=== PATIENT | male | born 1980 | race Caucasian/White ===

== ENCOUNTER 2019-07-15 16:04 | Observation (INO) ==
[2019-07-15] MEDS ORDERED: 0.9 % Sodium Chloride 1,000 ML IVC ONE (16:06)
[2019-07-15] MEDS ORDERED: Pantoprazole 40 MG VIAL IVP ONE (16:06)
--- NOTE | 2019-07-15 16:10 | Emergency Department Note ---
Disposition Clinical Impression: Acute renal insufficiency, Hyperkalemia, Diverticulitis Disposition: Admitted As Inpatient Condition: Fair Referrals: Semaj Perez DO [Primary Care Provider] - Forms: ED Satisfaction Letter Time of Disposition: 17:07 Abdominal Pain HPI - General Chief Complaint: ED General Medical Stated Complaint: GROIN PAIN, DIZZINESS, FEVER Time Seen by Provider: 07/15/19 16:06 Source: patient, EMS Mode of arrival: EMS Limitations: no limitations Nursing Notes Reviewed: Yes Vital Signs Reviewed: Yes - History of Present Illness HPI Narrative: Patient has been brought in by EMS with report of abdominal pain. Says in the lower abdomen to his back. He is noted to have a temperature 101.7 with a heart rate of 100 and blood pressure 133/64. An IV was established and he has been transported in for evaluation. He seen immediately on arrival. He states for 2-3 days he has been having some pains in his left lower abdomen towards his back. Yesterday he felt dizzy when he was standing and walking but not today. He is still having the pain mainly in the left lower quadrant to left lower back. He notes a history of chronic right low back to his right leg. He does not feel this is anything related to his back pain. Did have 2 bowel movements today without blood or mucus. He has had some nausea and vomiting 2 days ago but none at this time and no nausea now. He believes fever and chills just started 3-4 hours ago. He denies cough or congestion that is new. He does admit to a chronic cough. He feels up there might been a knot in the left groin. He states "not like her hernia or anything". He believes that has been present since yesterday. He notes he has had a history of bleeding ulcers for which she has seen GI at [facility]. He states he has been off medication for his stomach. He is not having increased epigastric burning, dyspepsia or other gastritis complaints. Pt Subjective Complaint: abdominal pain Onset (ago): day(s) (2-3) Consistency: intermittent, Worsening Location: LLQ Pain Severity: moderate Quality: aching, dull Radiation: back (Left lower) Migration to: no migration Improves with: rest Worsens with: movement Associated symptoms: Reports: fever, chills. Denies: nausea, vomiting, diarrhea, constipation, dysuria, hematemesis, hematochezia, melena, hematuria, anorexia, syncope Treatments prior to arrival: none - Related Data Home Medications Medication Instructions Recorded Confirmed Gabapentin [Neurontin] 800 mg PO TID 09/25/17 07/15/19 Lisinopril [Zestril] 20 mg PO DAILY 09/25/17 07/15/19 Metoprolol [Lopressor] 12.5 mg PO BID 11/06/18 07/15/19 Tizanidine HCl [Zanaflex] 4 mg PO TID 01/21/19 07/15/19 Omeprazole [PriLOSEC] 40 mg PO DAILY 07/15/19 07/15/19 Allergies Allergy/AdvReac Type Severity Reaction Status Date / Time ibuprofen AdvReac See Verified 01/21/19 10:40 Comments All systems ED: reviewed and negative except as stated. Abdominal Pain PMH - Past Medical History Medical history: Reports: GERD, GI bleed, hypertension Male Surgical History: Reports: other Psychiatric history: Reports: anxiety, bipolar, PTSD - Social History Smoking status: Current every day smoker Alcohol use: Reports: heavy, recent Drug use: Reports: marijuana, methamphetamine Physical Exam - General Limitations: no limitations General appearance: alert, in no apparent distress - Head Head exam: atraumatic, normocephalic, normal inspection - Eye Eye exam: Present: normal appearance, PERRL, EOMI. Absent: scleral icterus, conjunctival injection - ENT ENT exam: normal exam, normal oropharynx, mucous membranes moist - Neck Neck exam: Present: normal inspection, full ROM, trachea midline - Chest Chest inspection: Present: normal inspection, symmetric chest wall rise. Absent: tenderness - Respiratory Respiratory exam: Present: normal lung sounds bilaterally. Absent: respiratory distress, wheezes, prolonged expiratory phase - Cardiovascular Cardiovascular exam: Present: regular rate, normal rhythm, normal heart sounds - Abdominal Exam Abdominal exam: Present: soft, normal bowel sounds. Absent: distention, guar ding, rebound, rigidity, psoas sign, obturator sign, heel tap sign, Jacinto's sign, Rovsing's sign, tenderness at McBurney's Point, hernia Abdominal tenderness: Present: LLQ, suprapubic, moderate - Extremities Exam Extremities exam: Present: normal inspection, full ROM, normal capillary refill. Absent: tenderness, pedal edema, calf tenderness - Expanded Lower Extremity Exam Neurovascular/Tendon exam: Present: normal capillary refill. Absent: motor deficit, sensory deficit, tendon deficit Gait: not tested/not observed - Back Exam Back exam: Present: normal inspection, full ROM. Absent: tenderness, CVA tenderness (R), CVA tenderness (L) - Neurological Exam Neurological exam: Present: alert, oriented X3 - Psychiatric Psychiatric exam: Present: normal affect, normal mood. Absent: agitated, anxious - Skin Skin exam: Present: warm, dry, intact, normal color. Absent: diaphoresis, pallor Course Course Narrative: 1649: Patient has acute renal insufficiency by his lab in addition to a potassium of 5.8. He will continue on IV fluids and has been written for a dose of dextrose and insulin. He is in CT imaging at this time. I have added an EKG and a troponin to his existing laboratory testing. 1654: With return of CT imaging, care is been discussed with Dr. Parikh for inpatient observation of this patient. He is agreeable with continuation of IV fluids, antibiotics and recheck of his chemistries in the morning. This is discussed with the patient and an inpatient bed is being arranged at this time. Vital Signs Temperature 99.0 F 07/15/19 16:11 Pulse Rate 135 07/15/19 16:11 Respiratory Rate 18 07/15/19 16:11 Blood Pressure 135/77 07/15/19 16:11 O2 Sat by Pulse Oximetry 95 07/15/19 16:11 Temperature 99.0 F 07/15/19 16:11 Pulse Rate 135 07/15/19 16:11 Respiratory Rate 18 07/15/19 16:11 Blood Pressure 135/77 07/15/19 16:11 O2 Sat by Pulse Oximetry 95 07/15/19 16:11 Oxygen Delivery Oxygen Delivery Room Air Abdominal Pain - Differential Diagnosis Differential Diagnosis: Likely: abdominal pain non-specific, acute appendicitis, calculus of kidney, constipation, colonic obstruction, diverticulitis, d iverticulosis, small bowel obstruction - Medical Records Medical records reviewed: Yes I reviewed the patient's medical records. - Lab Data Lab results reviewed: Yes I reviewed the patient's lab results. Result diagrams: 07/15/19 16:20 07/15/19 16:20 Lab Results 07/15/19 07/15/19 07/15/19 Range/Units 16:20 16:20 16:20 WBC 8.7 (4.3-11.1) K/mcL RBC 4.37 (4.19-5.50) M/mcL Hgb 13.3 (12.9-16.9) g/dL Hct 40.9 (37.5-50.1) % MCV 93.6 (83.0-100.0) fL MCH 30.4 (28.0-33.3) pg MCHC 32.5 (31.6-35.5) g/dL RDW 13.6 (11.5-14.5) % Plt Count 169 (140-400) K/mcL MPV 10.7 (9.4-12.4) fL Immature Gran % 0.3 (0-4) % Seg Neutrophils % 82.3 % Lymphocytes % 7.7 % Monocytes % 7.3 % Eosinophils % 2.2 % Basophils % 0.2 % Neutrophils # 7.1 (1.6-8.9) K/mcL Lymphocytes # 0.7 (0.6-4.6) K/mcL Monocytes # 0.6 (0.0-1.3) K/mcL Eosinophils # 0.2 (0.0-0.6) K/mcL Basophils # 0.0 (0.0-0.2) K/mcL PT (9.4-12.1) Seconds INR APTT (26.0-36.0) Seconds Sodium 134 L (136-145) mEq/L Potassium 5.8 H (3.5-5.1) mEq/L Chloride 102 (98-107) mEq/L Carbon Dioxide 30 H (23-29) mEq/L BUN 33 H (6-20) mg/dL Creatinine 1.64 H (0.70-1.30) mg/dL Est GFR ( Amer) 56 L (> 60) Est GFR (Non-Af Amer) 47 L (> 60) BUN/Creatinine Ratio 20 (6-26) Glucose 104 (70-105) mg/dL Calculated Osmolality 286 (280-300) Lactic Acid 1.0 (0.5-2.2) mmol/L Calcium 9.1 (8.6-10.3) mg/dL Total Bilirubin 0.5 (0.3-1.0) mg/dL Direct Bilirubin 0.1 (0.0-0.2) mg/dL Indirect Bilirubin 0.4 (0.0-1.2) mg/dL AST 28 (13-39) Units/L ALT 20 (7-52) Units/L Alkaline Phosphatase 73 (34-104) Units/L Troponin I (< 0.04) ng/mL Serum Total Protein 7.5 (6.4-8.9) g/dL Albumin 4.4 (3.5-5.7) g/dL Globulin 3.1 (2.4-3.5) g/dL Albumin/Globulin Ratio 1.4 (1.1-2.2) Amylase 28 L (29-103) Units/L Lipase 18 (11-82) Units/L Urine Color (Yellow) Urine Clarity (Clear) Urine pH (5.0-8.0) pH Units Ur Specific Reading (1.010-1.025) Urine Protein (Neg-Trace) mg/dL Urine Glucose (UA) (Normal) mg/dL Urine Ketones (Negative) mg/dL Urine Blood (Negative) Urine Nitrite (Negative) Urine Bilirubin (Negative) Urine Urobilinogen (Normal) mg/dL Ur Leukocyte Esterase (Negative) Ur Culture Indicated? (NO) Urine Opiates Screen (Thqlzh=080) ng/mL Ur Buprenorphine Scrn (Cutoff=5) ng/mL Ur Oxycodone Screen (Cutoff= 100) ng/mL Ur Barbiturates Screen (Amubac=283) ng/mL Ur Phencyclidine Scrn (Cutoff=25) ng/mL Ur Amphetamines Screen (Nluuku=2009) ng/mL U Benzodiazepines Scrn (Ylkyqo=062) ng/mL Urine Cocaine Screen (Cutoff= 300) ng/mL U Marijuana (THC) Screen (Cutoff = 50) ng/mL Ur Drug Screen Interp Ethyl Alcohol (Less than 10) mg/dL 07/15/19 07/15/19 07/15/19 Range/Units 16:20 16:20 16:20 WBC (4.3-11.1) K/mcL RBC (4.19-5.50) M/mcL Hgb (12.9-16.9) g/dL Hct (37.5-50.1) % MCV (83.0-100.0) fL MCH (28.0-33.3) pg MCHC (31.6-35.5) g/dL RDW (11.5-14.5) % Plt Count (140-400) K/mcL MPV (9.4-12.4) fL Immature Gran % (0-4) % Seg Neutrophils % % Lymphocytes % % Monocytes % % Eosinophils % % Basophils % % Neutrophils # (1.6-8.9) K/mcL Lymphocytes # (0.6-4.6) K/mcL Monocytes # (0.0-1.3) K/mcL Eosinophils # (0.0-0.6) K/mcL Basophils # (0.0-0.2) K/mcL PT 11.5 (9.4-12.1) Seconds INR 1.0 APTT 32.6 (26.0-36.0) Seconds Sodium (136-145) mEq/L Potassium (3.5-5.1) mEq/L Chloride (98-107) mEq/L Carbon Dioxide (23-29) mEq/L BUN (6-20) mg/dL Creatinine (0.70-1.30) mg/dL Est GFR ( Amer) (> 60) Est GFR (Non-Af Amer) (> 60) BUN/Creatinine Ratio (6-26) Glucose (70-105) mg/dL Calculated Osmolality (280-300) Lactic Acid (0.5-2.2) mmol/L Calcium (8.6-10.3) mg/dL Total Bilirubin (0.3-1.0) mg/dL Direct Bilirubin (0.0-0.2) mg/dL Indirect Bilirubin (0.0-1.2) mg/dL AST (13-39) Units/L ALT (7-52) Units/L Alkaline Phosphatase (34-104) Units/L Troponin I < 0.03 (< 0.04) ng/mL Serum Total Protein (6.4-8.9) g/dL Albumin (3.5-5.7) g/dL Globulin (2.4-3.5) g/dL Albumin/Globulin Ratio (1.1-2.2) Amylase (29-103) Units/L Lipase (11-82) Units/L Urine Color (Yellow) Urine Clarity (Clear) Urine pH (5.0-8.0) pH Units Ur Specific Reading (1.010-1.025) Urine Protein (Neg-Trace) mg/dL Urine Glucose (UA) (Normal) mg/dL Urine Ketones (Negative) mg/dL Urine Blood (Negative) Urine Nitrite (Negative) Urine Bilirubin (Negative) Urine Urobilinogen (Normal) mg/dL Ur Leukocyte Esterase (Negative) Ur Culture Indicated? (NO) Urine Opiates Screen (Idmtiz=699) ng/mL Ur Buprenorphine Scrn (Cutoff=5) ng/mL Ur Oxycodone Screen (Cutoff= 100) ng/mL Ur Barbiturates Screen (Vxgxiv=774) ng/mL Ur Phencyclidine Scrn (Cutoff=25) ng/mL Ur Amphetamines Screen (Bkcugv=1054) ng/mL U Benzodiazepines Scrn (Ojwfth=113) ng/mL Urine Cocaine Screen (Cutoff= 300) ng/mL U Marijuana (THC) Screen (Cutoff = 50) ng/mL Ur Drug Screen Interp Ethyl Alcohol < 10 (Less than 10) mg/dL 07/15/19 07/15/19 Range/Units 16:37 16:37 WBC (4.3-11.1) K/mcL RBC (4.19-5.50) M/mcL Hgb (12.9-16.9) g/dL Hct (37.5-50.1) % MCV (83.0-100.0) fL MCH (28.0-33.3) pg MCHC (31.6-35.5) g/dL RDW (11.5-14.5) % Plt Count (140-400) K/mcL MPV (9.4-12.4) fL Immature Gran % (0-4) % Seg Neutrophils % % Lymphocytes % % Monocytes % % Eosinophils % % Basophils % % Neutrophils # (1.6-8.9) K/mcL Lymphocytes # (0.6-4.6) K/mcL Monocytes # (0.0-1.3) K/mcL Eosinophils # (0.0-0.6) K/mcL Basophils # (0.0-0.2) K/mcL PT (9.4-12.1) Seconds INR APTT (26.0-36.0) Seconds Sodium (136-145) mEq/L Potassium (3.5-5.1) mEq/L Chloride (98-107) mEq/L Carbon Dioxide (23-29) mEq/L BUN (6-20) mg/dL Creatinine (0.70-1.30) mg/dL Est GFR ( Amer) (> 60) Est GFR (Non-Af Amer) (> 60) BUN/Creatinine Ratio (6-26) Glucose (70-105) mg/dL Calculated Osmolality (280-300) Lactic Acid (0.5-2.2) mmol/L Calcium (8.6-10.3) mg/dL Total Bilirubin (0.3-1.0) mg/dL Direct Bilirubin (0.0-0.2) mg/dL Indirect Bilirubin (0.0-1.2) mg/dL AST (13-39) Units/L ALT (7-52) Units/L Alkaline Phosphatase (34-104) Units/L Troponin I (< 0.04) ng/mL Serum Total Protein (6.4-8.9) g/dL Albumin (3.5-5.7) g/dL Globulin (2.4-3.5) g/dL Albumin/Globulin Ratio (1.1-2.2) Amylase (29-103) Units/L Lipase (11-82) Units/L Urine Color Yellow (Yellow) Urine Clarity Clear (Clear) Urine pH 7.0 (5.0-8.0) pH Units Ur Specific Reading 1.015 (1.010-1.025) Urine Protein Negative (Neg-Trace) mg/dL Urine Glucose (UA) Normal (Normal) mg/dL Urine Ketones Negative (Negative) mg/dL Urine Blood Negative (Negative) Urine Nitrite Negative (Negative) Urine Bilirubin Negative (Negative) Urine Urobilinogen Normal (Normal) mg/dL Ur Leukocyte Esterase Negative (Negative) Ur Culture Indicated? NO (NO) Urine Opiates Screen Negative (Nbdhbw=833) ng/mL Ur Buprenorphine Scrn Negative (Cutoff=5) ng/mL Ur Oxycodone Screen Negative (Cutoff= 100) ng/mL Ur Barbiturates Screen Negative (Sdhlqb=384) ng/mL Ur Phencyclidine Scrn Negative (Cutoff=25) ng/mL Ur Amphetamines Screen Negative (Inyebu=1424) ng/mL U Benzodiazepines Scrn Negative (Crsyjz=286) ng/mL Urine Cocaine Screen Negative (Cutoff= 300) ng/mL U Marijuana (THC) Screen Negative (Cutoff = 50) ng/mL Ur Drug Screen Interp See Below Ethyl Alcohol (Less than 10) mg/dL - Radiology Data Radiology results reviewed: Yes I reviewed the patient's radiology results. 1655: Patient's CT demonstrates clear lungs. The liver, spleen and pancreas appear normal. Kidneys are without stone or obstruction. Bowels without obstruction but he does have diverticular disease with diverticular inflammation in the left lower quadrant. There is no evidence for abscess or perforation. Abdominal wall appears normal. This is on my interpretation. Impressions Abdomen/Pelvis CT 07/15/19 17:17 IMPRESSION: Findings compatible with mild acute uncomplicated diverticulitis of the mid to distal descending colon. D/ / Slade Corley MD / Slade Corley MD Interpreting Provider: Slade Corley MD - EKG Data EKG attestation: Yes I reviewed and interpreted this EKG. EKG shows normal: sinus rhythm, axis, intervals, QRS complexes, ST-T waves Rate: normal (93) Interpretation: no acute changes, other (mild peaking of the lateral T waves) Critical Care Time Critical Care Time: Yes Total Critical Care Time: 40 Attestation: As this patient did present with signs and symptoms of potential life- threatening illness requiring my urgent intervention, total critical care time in this patient's care has been 40 minutes, not withstanding separately reportable procedures.
[2019-07-15 16:28] LABS: Basophils % 0.2 %; Eosinophils # 0.2 K/mcL (0.0-0.6); Eosinophils % 2.2 %; Hematocrit 40.9 % (37.5-50.1); Hemoglobin 13.3 g/dL (12.9-16.9); Immature Granulocytes % 0.3 % (0-4); Lymphocytes # 0.7 K/mcL (0.6-4.6); Lymphocytes % 7.7 %; Mean Corpuscular HGB Conc 32.5 g/dL (31.6-35.5); Mean Corpuscular Hemoglobin 30.4 pg (28.0-33.3); Mean Corpuscular Volume 93.6 fL (83.0-100.0); Mean Platelet Volume 10.7 fL (9.4-12.4); Monocytes # 0.6 K/mcL (0.0-1.3); Monocytes % 7.3 %; Neutrophils # 7.1 K/mcL (1.6-8.9); Platelet Count 169 K/mcL (140-400); Red Blood Count 4.37 M/mcL (4.19-5.50); Red Cell Distribution Width 13.6 % (11.5-14.5); Segmented Neutrophils % 82.3 %; White Blood Count 8.7 K/mcL (4.3-11.1)
[2019-07-15 16:36] LABS: Prothrombin Time 11.5 Seconds (9.4-12.1)
[2019-07-15 16:39] LABS: Activated Partial Thrombo Time 32.6 Seconds (26.0-36.0)
[2019-07-15 16:44] LABS: Albumin 4.4 g/dL (3.5-5.7); Albumin/Globulin Ratio 1.4 (1.1-2.2); Bilirubin,Direct 0.1 mg/dL (0.0-0.2); Bilirubin,Indirect 0.4 mg/dL (0.0-1.2); Bilirubin,Total 0.5 mg/dL (0.3-1.0); Calcium 9.1 mg/dL (8.6-10.3); Globulin 3.1 g/dL (2.4-3.5); Potassium 5.8 mEq/L (3.5-5.1); Total Protein 7.5 g/dL (6.4-8.9)
[2019-07-15] MEDS ORDERED: Insulin Regular, Human 100 UNIT/ML SQ ONE (16:48)
[2019-07-15] MEDS ORDERED: *HR* Dextrose 50 % in Water (Vial) 50 ML VIAL IVP ONE (16:48)
[2019-07-15 16:49] LABS: Bilirubin,Urine Negative (Negative); Blood,Urine Negative (Negative); Clarity,Urine Clear (Clear); Color,Urine Yellow (Yellow); Glucose,Urine (UA) Normal (Normal); Ketones,Urine Negative (Negative); Leukocyte Esterase,Urine Negative (Negative); Nitrite,Urine Negative (Negative); Protein,Urine Negative (Neg-Trace); Specific Gravity,Urine 1.015 (1.010-1.025); Urobilinogen,Urine Normal (Normal)
[2019-07-15 16:52] LABS: Amphetamine Screen,Urine Negative ng/mL (Cutoff=1000); Barbiturate Screen,Urine Negative ng/mL (Cutoff=200); Benzodiazepines Screen,Urine Negative ng/mL (Cutoff=200); Cannabinoid Screen,Urine Negative ng/mL (Cutoff = 50); Cocaine Screen,Urine Negative ng/mL (Cutoff= 300); Opiate Screen,Urine Negative ng/mL (Cutoff=300); Phencyclidine Screen,Urine Negative ng/mL (Cutoff=25)
[2019-07-15] MEDS ORDERED: MetroNIDAZOLE 500 MG/100 ML 500 MG/100 ML BAG IVPB ONE ×2 (16:54→17:49)
[2019-07-15] MEDS ORDERED: *HR* HYDROmorphone (PF) 1 MG/ML SYRINGE IVP ONE ×2 (17:07→17:49)
[2019-07-15] MEDS ORDERED: *HR* HYDROmorphone (PF) 1 MG/ML SYRINGE IVP PRN (17:49)
[2019-07-15] MEDS ORDERED: Ondansetron 4 MG/2 ML VIAL IVP PRN (17:49)
[2019-07-15] MEDS ORDERED: Mag Hydrox/Al Hydrox/Simeth 30 ML UDC PO PRN (17:49)
[2019-07-15] MEDS ORDERED: MOM Conc 10 ML UD.LIQ PO PRN (17:49)
[2019-07-15] MEDS ORDERED: Naloxone 0.4 MG/ML INJ IVP PRN (17:49)
[2019-07-15] MEDS: traMADol 50 MG TABLET PO PRN (20:56)
[2019-07-15] MEDS: Gabapentin 400 MG CAPSULE PO SCH (20:56)
[2019-07-15] MEDS: 0.9 % Sodium Chloride 1,000 ML IVC SCH (20:57)
[2019-07-16] MEDS: MetroNIDAZOLE 500 MG/100 ML 500 MG/100 ML BAG IVPB SCH ×3 (00:27→15:53)
[2019-07-16] MEDS: 0.9 % Sodium Chloride 1,000 ML IVC SCH (03:11)
[2019-07-16] MEDS: traMADol 50 MG TABLET PO PRN ×2 (05:43→15:58)
[2019-07-16 06:53] LABS: BUN/Creatinine Ratio 18 (6-26); Blood Urea Nitrogen 17 mg/dL (6-20); Calcium 8.7 mg/dL (8.6-10.3); Carbon Dioxide 28 mEq/L (23-29); Chloride 102 mEq/L (98-107); Glucose 101 mg/dL (70-105); Osmolality,Calculated 280 (280-300); Potassium 5.2 mEq/L (3.5-5.1); Sodium 134 mEq/L (136-145); eGFR For African Americans > 60 (> 60); eGFR For Non-African Americans > 60 (> 60)
[2019-07-16] MEDS: Gabapentin 400 MG CAPSULE PO SCH ×3 (08:53→21:10)
[2019-07-16] MEDS ORDERED: Lisinopril 20 MG TABLET PO SCH (09:00)
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
[2019-07-16] MEDS ORDERED: Acetaminophen 325 MG TABLET PO PRN (11:06)
--- NOTE | 2019-07-16 11:28 | Electrocardiograph Report ---
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
[2019-07-16] MEDS: Lactobacillus 1 EACH CAP.SPRINK PO SCH (21:10)
[2019-07-17] MEDS: MetroNIDAZOLE 500 MG/100 ML 500 MG/100 ML BAG IVPB SCH ×3 (01:22→17:48)
[2019-07-17] MEDS: traMADol 50 MG TABLET PO PRN ×3 (01:26→21:00)
[2019-07-17] MEDS: *HR* Enoxaparin 40 MG/0.4 ML SYRINGE SQ SCH (05:32)
[2019-07-17 06:20] LABS: Basophils % 0.4 %; Eosinophils # 0.2 K/mcL (0.0-0.6); Eosinophils % 2.5 %; Hematocrit 38.8 % (37.5-50.1); Hemoglobin 12.4 g/dL (12.9-16.9); Immature Granulocytes % 0.1 % (0-4); Lymphocytes # 1.6 K/mcL (0.6-4.6); Lymphocytes % 18.7 %; Mean Corpuscular Hemoglobin 30.7 pg (28.0-33.3); Monocytes # 1.1 K/mcL (0.0-1.3); Monocytes % 12.4 %; Neutrophils # 5.6 K/mcL (1.6-8.9); Platelet Count 142 K/mcL (140-400); Red Blood Count 4.04 M/mcL (4.19-5.50); Red Cell Distribution Width 13.2 % (11.5-14.5); Segmented Neutrophils % 65.9 %; White Blood Count 8.4 K/mcL (4.3-11.1)
[2019-07-17 06:42] LABS: BUN/Creatinine Ratio 13 (6-26); Blood Urea Nitrogen 9 mg/dL (6-20); Calcium 8.5 mg/dL (8.6-10.3); Carbon Dioxide 27 mEq/L (23-29); Chloride 98 mEq/L (98-107); Glucose 117 mg/dL (70-105); Magnesium 1.6 mg/dL (1.6-2.6); Osmolality,Calculated 274 (280-300); Potassium 4.2 mEq/L (3.5-5.1); Sodium 132 mEq/L (136-145); eGFR For African Americans > 60 (> 60); eGFR For Non-African Americans > 60 (> 60)
[2019-07-17] MEDS: Lactobacillus 1 EACH CAP.SPRINK PO SCH ×2 (09:08→19:42)
[2019-07-17] MEDS: Gabapentin 400 MG CAPSULE PO SCH ×3 (09:08→19:42)
--- NOTE | 2019-07-17 10:09 | Internal Med Progress Note ---
Date of Encounter: 07/17/19 Time of Encounter: 10:00 - Assessment and plan (1) Diverticulitis Current Visit: Yes Status: Acute Assessment and plan: July 17. Continue IV Flagyl and Cipro with lactobacillus. He wishes to try advancing diet. (2) Chronic pain Current Visit: No Status: Chronic Assessment and plan: July 17. Continue gabapentin and Tylenol. Qualifiers: Chronic pain type: chronic pain syndrome Qualified Code(s): G89.4 - Chronic pain syndrome (3) Hypertension Current Visit: No Status: Chronic Assessment and plan: July 17. Blood pressure borderline low. Hold Lopressor. Remain off lisinopril. Qualifiers: Hypertension type: essential hypertension Qualified Code(s): I10 - Essential (primary) hypertension (4) Acute renal insufficiency Current Visit: Yes Status: Acute Assessment and plan: July 17. BUN and creatinine improved to 9 and 0.68 respectively with estimated GFR > 60. Remain off lisinopril. (5) Hyperkalemia Current Visit: Yes Status: Acute Assessment and plan: July 17. Resolved. Potassium level 4.2 today. (6) Anemia Current Visit: Yes Status: Acute Assessment and plan: July 17. Anemia testing will be ordered. Qualifiers: Anemia type: unspecified type Qualified Code(s): D64.9 - Anemia, unspecified - Subjective Interval history: July 17. He has no new complaints. He reports ongoing tenderness in his left lower abdominal area. He denies melena or hematochezia with BM. - Constitutional Vitals: Temp Pulse Resp BP Pulse Ox 98.3 F 76 16 98/56 94 07/17/19 06:45 07/17/19 06:45 07/17/19 06:45 07/17/19 06:45 07/17/19 06:45 Exam: He is resting comfortably in bed and appears in no acute distress. His left abdominal area is slightly tender to palpation. No masses or guarding are noted . I reviewed his medications and lab results. Internal Medicine: Result - Labs CBC & Chem 7: 07/17/19 05:59 07/17/19 05:59 Labs: Short CBC 07/17/19 Range/Units 05:59 WBC 8.4 (4.3-11.1) K/mcL Hgb 12.4 L (12.9-16.9) g/dL Hct 38.8 (37.5-50.1) % Plt Count 142 (140-400) K/mcL Neutrophils # 5.6 (1.6-8.9) K/mcL BMP 07/17/19 05:59 Sodium 132 L Potassium 4.2 Chloride 98 Carbon Dioxide 27 BUN 9 Creatinine 0.68 L Glucose 117 H Calcium 8.5 L - ABG Interpretation ABG results: PT/INR, D-dimer PT 11.5 Seconds (9.4-12.1) 07/15/19 16:20 Consult Discharge Plan - Plan Referrals: Semaj Perez DO [Primary Care Provider] - 1 week
[2019-07-18] MEDS: MetroNIDAZOLE 500 MG/100 ML 500 MG/100 ML BAG IVPB SCH ×2 (00:59→08:09)
[2019-07-18] MEDS: *HR* Enoxaparin 40 MG/0.4 ML SYRINGE SQ SCH (06:28)
[2019-07-18] MEDS: traMADol 50 MG TABLET PO PRN (06:31)
[2019-07-18 06:34] VITALS: BP 128/83
[2019-07-18] MEDS: Lactobacillus 1 EACH CAP.SPRINK PO SCH (08:29)
[2019-07-18] MEDS: Gabapentin 400 MG CAPSULE PO SCH (08:30)
[2019-07-18 08:38] LABS: Basophils % 0.4 %; Eosinophils # 0.3 K/mcL (0.0-0.6); Eosinophils % 3.3 %; Hematocrit 38.4 % (37.5-50.1); Hemoglobin 12.8 g/dL (12.9-16.9); Immature Granulocytes % 0.2 % (0-4); Lymphocytes # 0.9 K/mcL (0.6-4.6); Lymphocytes % 11.4 %; Mean Corpuscular HGB Conc 33.3 g/dL (31.6-35.5); Mean Platelet Volume 11.7 fL (9.4-12.4); Monocytes # 0.9 K/mcL (0.0-1.3); Monocytes % 10.7 %; Platelet Count 151 K/mcL (140-400); Red Blood Count 4.13 M/mcL (4.19-5.50); Red Cell Distribution Width 12.5 % (11.5-14.5); White Blood Count 8.2 K/mcL (4.3-11.1)
[2019-07-18 09:04] LABS: BUN/Creatinine Ratio 12 (6-26); Blood Urea Nitrogen 8 mg/dL (6-20); Calcium 8.7 mg/dL (8.6-10.3); Carbon Dioxide 31 mEq/L (23-29); Chloride 95 mEq/L (98-107); Glucose 115 mg/dL (70-105); Osmolality,Calculated 273 (280-300); Potassium 4.1 mEq/L (3.5-5.1); Sodium 132 mEq/L (136-145); eGFR For African Americans > 60 (> 60); eGFR For Non-African Americans > 60 (> 60)
--- NOTE | 2019-07-18 10:27 | Discharge Summary ---
Date of Encounter: 07/18/19 Time of Encounter: 10:18 - Discharge Diagnosis (1) Diverticulitis Priority: Primary Status: Acute (2) Chronic pain Priority: Secondary Status: Chronic Qualifiers: Chronic pain type: chronic pain syndrome Qualified Code(s): G89.4 - Chronic pain syndrome (3) Hypertension Priority: Secondary Status: Chronic Qualifiers: Hypertension type: essential hypertension Qualified Code(s): I10 - Essential (primary) hypertension (4) Acute renal insufficiency Priority: Secondary Status: Resolved (5) Hyperkalemia Priority: Secondary Status: Resolved (6) Anemia Priority: Secondary Status: Acute Qualifiers: Anemia type: unspecified type Qualified Code(s): D64.9 - Anemia, unspecified Hospital course: Mr. Henderson is a 39 year old male who came to emergency room complaining of left lower abdominal discomfort onset the evening of July 14. He denies vomiting or diarrhea but reports fevers and chills occurred the next day. He came to emergency room and was evaluated and was found to have evidence of sigmoid diverticulitis. He was admitted to [facility] for ongoing care [facility]. Initial orders were written by the emergency room physician. I saw him on July 16 and performed the history and physical. He was started on IV Flagyl and Cipro with oral lactobacillus. He had good clinical response and remained afebrile after the first 24 hours. Left shift on WBC differential resolved the day of discharge. He had decreased abdominal discomfort and was able tolerate regular diet by day of discharge. He will continue with oral antibiotic and probiotic for 3 additional days at discharge. Lisinopril was held and IV fluids were given. BUN and creatinine normalized to 8 and 0.68 respectively by day of discharge. His blood pressure remained satisfactory off lisinopril. Hyperkalemia resolved and remained WNL. PCP can monitor blood pressure and labs. He will follow with Dr. Perez within 1 week. - Time Spent with Patient Total time spent providing and/or coordinating discharge services: - Discharge Medications Prescriptions: New Ciprofloxacin [Cipro] 500 mg PO BID #6 tablet Lactobacillus [Culturelle] 1 each PO BID #6 cap.sprink metroNIDAZOLE [Flagyl] 500 mg PO Q8H #9 tablet Continued Gabapentin [Neurontin] 800 mg PO TID Metoprolol [Lopressor] 25 mg PO BID Tizanidine HCl [Zanaflex] 4 mg PO TID Changed Omeprazole [PriLOSEC] 40 mg PO DAILY PRN #0 PRN Reason: Dyspepsia Discontinued Lisinopril [Zestril] 20 mg PO DAILY Home Medications: Gabapentin [Neurontin] 800 mg PO TID 09/25/17 [History] Metoprolol [Lopressor] 25 mg PO BID 11/06/18 [History] Tizanidine HCl [Zanaflex] 4 mg PO TID 01/21/19 [History] Ciprofloxacin [Cipro] 500 mg PO BID #6 tablet 07/18/19 [Rx] Lactobacillus [Culturelle] 1 each PO BID #6 cap.sprink 07/18/19 [Rx] Omeprazole [PriLOSEC] 40 mg PO DAILY PRN #0 07/18/19 [Rx] metroNIDAZOLE [Flagyl] 500 mg PO Q8H #9 tablet 07/18/19 [Rx] Allergies/Adverse Reactions: Allergy/AdvReac Type Severity Reaction Status Date / Time ibuprofen AdvReac See Verified 01/21/19 10:40 Comments Date of admission: 07/15/19 17:30 Primary care physician: Semaj Perez DO - Constitutional Vitals: Temp Pulse Resp BP Pulse Ox 98.4 F 76 16 128/83 95 07/18/19 06:34 07/18/19 06:34 07/18/19 06:34 07/18/19 06:34 07/18/19 06:34 - Patient Status Disposition: Home, Self-Care Condition: Fair - Discharge Instructions Follow Up With: Semaj Perez DO [Primary Care Provider] - 1 week - Diet and Activity Activity: resume usual activities as tolerated Diet: advance to your usual diet
[2019-07-18] MEDS ORDERED: FLU Vac QV 19-20 (6Month+)/PF 0.5 ML SYRINGE IM ONE (11:01)
[2019-07-18 12:37] LABS: % Iron Saturation 12 % (20-55); Iron 33 mcg/dL (65-175); Transferrin 194 mg/dL (203-362)
[2019-07-18 12:41] LABS: Ferritin 176 ng/mL (20-250)
[2019-07-18 13:00] LABS: Folate > 22.3 ng/mL (3.0-16.0); Vitamin B12 492 pg/mL (250-1100)
== END 2019-07-18 12:25 | disposition home or self-care (01) ==
LOC: EMEROOPIK 16:04 → INPPIK 16:04
PROVIDERS: ADMIT Internal Medicine; ATTEND Internal Medicine